=== PATIENT | male | born 1995 | race Caucasian/White ===

== ENCOUNTER 2020-09-30 10:46 | Emergency (ER) | payer SELFPAY ==
[2020-09-30] VITALS (8 sets, daily range): BP systolic 109–153; BP diastolic 59–95; PULSE 57–79; RESP 19–45; TEMP 37.3; O2SAT 97–99; BMI 29.2
[2020-09-30 11:23] LABS: Add Manual Diff / Slide Review NO; Basophils Absolute Auto 0 /uL (0-100); Basophils Percent Auto 0.4 % (0-2); Eosinophils Absolute Auto 0 /uL (0-450); Eosinophils Percent Auto 0.3 % (2-4); Hematocrit 42.8 % (41-53); Hemoglobin 14.6 g/dL (13.5-17.5); Lymphocytes Absolute Auto 1900 /uL (1100-4500); Lymphocytes Percent Auto 20.8 % (25-40); Mean Corpuscular HGB Conc 34.1 % (30-36); Mean Corpuscular Hemoglobin 29.2 PG (26-34); Mean Corpuscular Volume 85.8 fL (80-100); Monocytes Absolute Auto 400 /uL (0-900); Monocytes Percent Auto 4.7 % (3-14); Neutrophils Absolute Auto 6600 /uL (1500-7000); Neutrophils Percent Auto 73.8 % (50-75); Platelet Count 245 X10^3/uL (150-400); Red Blood Cell Count 4.99 X10^6/uL (4.5-5.9); Red Cell Distribution Width 13.3 % (11.6-14.8); White Blood Cell Count 8.9 X10^3/uL (4.5-11.0)
--- NOTE | 2020-09-30 11:31 | ED_ITS ---
HPI - Abdominal Pain General Chief Complaint: Abdominal Pain Stated Complaint: diarrhea/ nausea, vomiting 1 xweek Time Seen by Provider: 09/30/20 11:30 Source: patient Mode of arrival: Ambulatory Limitations: no limitations History of Present Illness HPI narrative: 24-year-old gentleman presents with 6 days of severe abdominal pain, periumbilical than extending through the entire abdomen associated with a deep cramping type sensation vomiting and diarrhea. No blood has been appreciated. He has a history of multiple stomach issues and significant reflux. Frequently takes famotidine for the stomach issues. He also takes Tylenol ibuprofen for chronic headaches. He does describe a ?normal amount? of daily marijuana use. He had a similar episode approximately 2 months ago however this was after an episode of relatively heavy alcohol drinking and was presumed to be related to the unusual alcohol use that evening. He does note that the pain will last between 1 and 2 hours daily it started about 9:00 a.m. this morning somewhat helped with a hot shower but not completely relieved. He has noted in the past that hot showers have been somewhat helpful in relieving some of the muscle spasm and helping him relax enough to stop vomiting. He denies any weight loss. No fevers, chest pain, palpitations, muscle spasms, dysuria or cognitive deficits. Related Data Previous Rx's Medication Instructions Recorded promethazine 25 mg PO Q6H PRN #30 tab 09/30/20 Allergies Allergy/AdvReac Type Severity Reaction Status Date / Time No Known Drug Allergies Allergy Verified 09/30/20 10:56 Review of Systems Review of Systems Narrative: Remainder of review of systems including constitutional, ENT, car diovascular, respiratory, GI, , musculoskeletal, skin, neurologic and psychiatric systems reviewed and are unremarkable except as noted in HPI. Patient History Medical History (Updated 09/30/20 @ 14:10 by Lisbeth Aranda MD) Acid reflux Social History Smoking Status: Former smoker Smoking Status: Former smoker alcohol intake frequency: holidays/special occasions only Substance Use Type: marijuana Exam Narrative Exam Narrative: General: writhing with abdominal pain and dry heaves. Able to give a complete and coherent history. Well-nourished well-developed HEENT: Moist mucous membranes, normal sclera with reactive pupils, Neck: No JVD, supple Respiratory: Lungs are clear to auscultation, no wheezing no rales no rhonchi. Full and symmetrical air movement Cardiac: Regular rate and rhythm no murmurs no bruits Abdomen: Soft, diffusely tender with decreased bowel tones, no flank pain Skin: Warm and dry, no rashes Neurologic: Grossly neurologically intact with no obvious asymmetries or abnormalities Extremities: No trauma, well perfused Psych: Cooperative, appropriate insight and affect Initial Vital Signs Initial Vital Signs: Vital Signs Temperature 99.1 F 09/30/20 10:56 Pulse Rate 79 09/30/20 10:56 Respiratory Rate 20 09/30/20 10:56 Blood Pressure 153/90 H 09/30/20 10:56 Pulse Oximetry 97 09/30/20 10:56 Course Orders Ordered: ED Orders 09/30/20 11:00 EKG-12 Lead Stat 09/30/20 11:07 Complete Blood Count AUTO DIFF Stat Comprehensive Metabolic Panel Stat Lipase Stat Partial Thromboplastin Time Stat Prothrombin Time INR Stat 09/30/20 12:00 CT abdomen pelvis w con Stat Hydromorphone HCl (Hydromorphone 0.5 Mg Inj) 0.5 mg IV Q15MIN PRN PRN Reason: Pain, Last Admin: 09/30/20 12:10 Dose: 0.5 mg Documented by: STEPHANI Discontinued Medications Diphenhydramine HCl (Diphenhydramine 50 Mg/Ml Vial) 25 mg IV NOW ONE Stop: 09/30/20 12:01 Last Admin: 09/30/20 12:10 Dose: 25 mg Documented by: STEPHANI Haloperidol (Haloperidol 5 Mg/Ml Vial) 2 mg IV NOW ONE Stop: 09/30/20 12:01 Last Admin: 09/30/20 12:10 Dose: 2 mg Documented by: STEPHANI Sodium Chloride (Normal Saline 0.9%) 1,000 mls @ 1,000 mls/hr IV BOLUS ONE Stop: 09/30/20 12:28 Last Infusion: 09/30/20 13:28 Dose: 0 mls/hr Documented by: Admin: 09/30/20 11:39 Dose: 1,000 mls/hr Documented by: STEPHANI Ondansetron HCl (Ondansetron 4 Mg/2 Ml Inj) 4 mg IV NOW ONE Stop: 09/30/20 11:30 Vital Signs Vital signs: Vital Signs - 8 hr 09/30/20 10:56 09/30/20 12:15 09/30/20 12:31 Temperature 99.1 F Pulse Rate 79 77 69 Respiratory Rate 20 28 H 45 H Blood Pressure 153/90 H 133/77 Pulse Oximetry 97 99 99 09/30/20 12:32 09/30/20 13:00 09/30/20 13:01 Temperature Pulse Rate 69 65 69 Respiratory Rate 27 H 26 H Blood Pressure 144/95 H 139/76 Pulse Oximetry 99 99 98 09/30/20 13:30 09/30/20 14:00 Temperature Pulse Rate 57 L 59 L Respiratory Rate 19 19 Blood Pressure 109/59 L Pulse Oximetry 98 MDM - Abdominal Pain Medical Records Attestation: I reviewed the patient's medical records. Lab Data Attestation: I reviewed the patient's lab results. Result diagrams: 09/30/20 11:07 09/30/20 11:07 Labs: Lab Results 09/30/20 09/30/20 09/30/20 Range/Units 11:07 11:07 11:07 WBC 8.9 (4.5-11.0) X10^3/uL RBC 4.99 (4.5-5.9) X10^6/uL Hgb 14.6 (13.5-17.5) g/dL Hct 42.8 (41-53) % MCV 85.8 (80-100) fL MCH 29.2 (26-34) PG MCHC 34.1 (30-36) % RDW 13.3 (11.6-14.8) % Plt Count 245 (150-400) X10^3/uL Neut % (Auto) 73.8 (50-75) % Lymph % (Auto) 20.8 L (25-40) % Ocean % (Auto) 4.7 (3-14) % Eos % (Auto) 0.3 L (2-4) % Baso % (Auto) 0.4 (0-2) % Neut # (Auto) 6600 (8647-4072) /uL Lymph # (Auto) 1900 (0160-3009) /uL Ocean # (Auto) 400 (0-900) /uL Eos # (Auto) 0 (0-450) /uL Baso # (Auto) 0 (0-100) /uL PT 12.5 (10.1-12.7) SECONDS INR 1.1 (0.9-1.3) APTT 34 (26.4-36.2) SECONDS Sodium 140 (137-145) mmol/L Potassium 3.7 (3.4-5.1) mmol/L Chloride 107 (98-107) mmol/L Carbon Dioxide 26 (22-32) mmol/L BUN 14 (9-20) mg/dL Creatinine 0.85 (0.66-1.25) mg/dL Estimated GFR > 60.0 (>60) mL/min BUN/Creatinine Ratio 16.5 (6-22) Glucose 123 H (70-100) mg/dL Calcium 9.8 (8.4-10.2) mg/dL Total Bilirubin 0.7 (0.2-1.3) mg/dL AST 29 (17-59) IU/L ALT 40 (<50) IU/L Alkaline Phosphatase 65 (38-126) U/L Total Protein 8.1 (6.3-8.2) g/dL Albumin 4.8 (3.5-5.0) g/dL Globulin 3.3 (1.7-4.1) g/dL Albumin/Globulin Ratio 1.5 (1.0-2.8) Lipase 81 (23-300) U/L Point of care testing: Urine Dip Bedside Urine Glucose Negative Bedside Urine Bilirubin - Negative Bedside Urine Ketone - Negative Urine Specific [place] 1.015 Bedside Urine Occult Blood - Negative Bedside Urine pH 7.5 Bedside Urine Protein - Negative Bedside Urine Urobilinogen - Negative Bedside Urine Nitrite - Negative Bedside Urine Leukocytes - Negative Esterase Imaging Data CT scan - abdomen/pelvis: Radiologist's Impression: FINDINGS: Image quality: Excellent. ABDOMEN: Lung bases: Lung bases are clear. Heart size is normal. Solid organs: Liver is normal in size. Gallbladder is not significantly distended. No calcified gallstones. Biliary system is non dilated. Pancreas enhances normally. Spleen is normal in size and enhancement. No adrenal nodules. Kidneys demonstrate normal size and enhancement, without hydronephrosis. Peritoneum and bowel: Bowel loops demonstrate normal wall thickness and caliber. The retrocecal appendix is normal in caliber. No free fluid or air. Nodes and vessels: No retroperitoneal or mesenteric adenopathy by size criteria. Aorta and inferior vena cava are normal in size. Miscellaneous: No ventral hernias. PELVIS: Genitourinary: Bladder wall thickness is normal. Hydroceles partially vi sualized. Miscellaneous: No inguinal hernias or adenopathy. Bones: No suspicious bony lesions. No vertebral body compression fractures. IMPRESSION: No acute abnormality identified. No free fluid. Appendix is normal in caliber. Bilateral hydroceles partially visualized. Dictated by: Elpidio Zavala M.D. on 09/30/2020 at 12:01 [facility] Narrative Medical decision making narrative: Cyclical type vomiting improved significantly with Benadryl and Haldol with minimal response to Zofran. Hot water showers do seem to make a difference. He does use marijuana daily. No evidence of acute intra-abdominal infection, normal lab work and normal abdominal CT. At this point the most likely explanation for is recurrent pain and vomiting is canal annoyed hyperemesis syndrome. Patient will be discharged home. Will discuss treatment as well as Stopping use of marijuana. Discharge Plan Departure Patient Disposition: Home Clinical Impression: Cannabinoid hyperemesis syndrome Instructions: DI for Cannabinoid Hyperemesis Syndrome Activity Restrictions/Additional Instructions: Thank you for coming in today Fortunately your blood work as well as your CT scan were very reassuring. There is no evidence of kidney or liver dysfunction. There are no masses or tumors appreciated in your abdomen and no twisted or turned got. No evidence of acute appendicitis or kidney stones. I am concerned that your daily marijuana use may be making her symptoms dramatically worse. I have given you some information on Canabinoid hyperemesis syndrome. This is a syndrome where people who were chronic marijuana users bega n developing recurrent dramatic vomiting and abdominal pain. The only real relief is with stopping marijuana use completely. It may take up to 3 months to get all of the THC completely metabolized out of your body. Stopping for 1-2 days typically makes no difference at all with the symptoms. The nausea and pain with this entity tends to get better with very hot showers and most of the nausea medications that we have are not very effective. I have given you a prescription for Phenergan which can help slightly but certainly is not the perfect solution Please consider stopping THC completely. I would encourage you to do your own research on this syndrome and to draw your own conclusions. If you find that you are developing fevers, worsening abdominal pain, new or concerning symptoms it would be very appropriate to return to the emergency department I wish you well Prescriptions: New promethazine 25 mg tablet 25 mg PO Q6H PRN (Reason: nausea and vomiting) Qty: 30 RF: 0
[2020-09-30 11:35] LABS: Alanine Aminotransferase 40 IU/L (<50); Albumin 4.8 g/dL (3.5-5.0); Albumin Globulin Ratio 1.5 (1.0-2.8); Alkaline Phosphatase 65 U/L (38-126); Aspartate Aminotransferase 29 IU/L (17-59); BUN Creatinine Ratio 16.5 (6-22); Bilirubin Total 0.7 mg/dL (0.2-1.3); Blood Urea Nitrogen 14 mg/dL (9-20); Calcium 9.8 mg/dL (8.4-10.2); Carbon Dioxide 26 mmol/L (22-32); Chloride 107 mmol/L (98-107); Estimated Glomerular Filt Rate > 60.0 mL/min (>60); Globulin 3.3 g/dL (1.7-4.1); Glucose 123 mg/dL (70-100); HEMOLYSIS < 15 (0-50); Lipase 81 U/L (23-300); Potassium 3.7 mmol/L (3.4-5.1); Sodium 140 mmol/L (137-145); Total Protein 8.1 g/dL (6.3-8.2)
[2020-09-30] MEDS: SODIUM CHLORIDE 0.9% 1,000 ML 1000 ML IV (11:39)
[2020-09-30 11:54] LABS: INR 1.1 (0.9-1.3); Prothrombin Time 12.5 SECONDS (10.1-12.7)
[2020-09-30 11:57] LABS: PTT Partial Thromboplastin Tim 34 SECONDS (26.4-36.2)
--- NOTE | 2020-09-30 12:00 | DI.CT.S_ITS ---
PROCEDURE: CT ABDOMEN PELVIS W CON INDICATIONS: abd pain TECHNIQUE: After the administration of intravenous contrast, 5 mm thick sections acquired from the diaphragm to the symphysis. 5 mm coronal and sagittal reformats were acquired. For radiation dose reduction, the following was used: automated exposure control, adjustment of mA and/or kV according to patient size. COMPARISON: None. FINDINGS: Image quality: Excellent. ABDOMEN: Lung bases: Lung bases are clear. Heart size is normal. Solid organs: Liver is normal in size. Gallbladder is not significantly distended. No calcified gallstones. Biliary system is non dilated. Pancreas enhances normally. Spleen is normal in size and enhancement. No adrenal nodules. Kidneys demonstrate normal size and enhancement, without hydronephrosis. Peritoneum and bowel: Bowel loops demonstrate normal wall thickness and caliber. The retrocecal appendix is normal in caliber. No free fluid or air. Nodes and vessels: No retroperitoneal or mesenteric adenopathy by size criteria. Aorta and inferior vena cava are normal in size. Miscellaneous: No ventral hernias. PELVIS: Genitourinary: Bladder wall thickness is normal. Hydroceles partially visualized. Miscellaneous: No inguinal hernias or adenopathy. Bones: No suspicious bony lesions. No vertebral body compression fractures. IMPRESSION: No acute abnormality identified. No free fluid. Appendix is normal in caliber. Bilateral hydroceles partially visualized. Dictated by: Elpidio Zavala M.D. on 09/30/2020 at 12:01 Approved by: Elpidio Zavala M.D. on 09/30/2020 at 12:06
[2020-09-30] MEDS: HYDROMORPHONE 0.5 MG INJ IV (12:10)
[2020-09-30] MEDS: HALOPERIDOL 5 MG/ML VIAL 2 MG IV (12:10)
[2020-09-30] MEDS: diphenhydrAMINE 50 MG/ML VIAL 25 MG IV (12:10)
== END 2020-09-30 14:45 | disposition home or self-care (01) ==
PROVIDERS: Emergency Provider Emergency Medicine
DX: R11.2 Nausea with vomiting, unspecified (principal); F12.90 Cannabis use, unspecified, uncomplicated; R19.7 Diarrhea, unspecified; K21.9 Gastro-esophageal reflux disease without esophagitis
CPT/HCPCS: 36415; 74177; 80053; 81003; 83690; 85025; 85610; 85730; 93005; 93010; 96361; 96374; 96375; 99284; J1170; J1200; J1630; Q9967